=== PATIENT | female | born 1975 | race African-American/Black ===

== ENCOUNTER 2019-04-12 14:03 | Emergency (ER) | payer MEDICAID ==
[~2019-04-12] VITALS: Ht 162.6 cm; Wt 54.4 kg
[2019-04-12 14:03] VITALS: BP 112/73
--- NOTE | 2019-04-12 14:10 | NUR ---
ED Nurse Note: patient was broguht into ED from the street due to bizarre behavior. patient is alert awake, able to follow directions, but pt is talking to herself at this time.
--- NOTE | 2019-04-12 14:39 | NUR ---
Jose kaur in EDM - 04/12/19 at 1441 by MAYELAO ED Nurse Note: Sabina VILLAGRAN is notified that patient is unable to provide urine sample and "wishes to be treated for the other symptoms."
--- NOTE | 2019-04-12 15:59 | NUR ---
ED Nurse Note: patient tried to provide urine sample but unable to. patient drinking water.
--- NOTE | 2019-04-12 16:16 | Emergency Room Report ---
History of Present Illness General Chief Complaint: General Complaint Source: Patient Present Illness HPI 43-year-old female with no known significant past medical history appears to be having underlying psychiatric disorder brought in by paramedics due to bizarre behavior. Patient denies any suicidal homicidal ideation. Denies any pain at this time. Denies any drug use. Is loud and aggressive however sits in the room when told to do so. In no apparent distress and vital signs are within normal limits. Allergies: Coded Allergies: No Known Allergies (Unverified , 04/12/19) Patient History Past Medical History: see triage record Past Surgical History: none Pertinent Family History: none Now: No Immunizations: UTD Reviewed Nursing Documentation: PMH: Agreed; PSxH: Agreed Nursing Documentation-PMH Past Medical History: No Stated History Review of Systems All Other Systems: negative except mentioned in HPI Physical Exam Vital Signs Date Time Temp Pulse Resp B/P (MAP) Pulse Ox O2 Delivery O2 Flow Rate FiO2 04/12/19 14:02 98.1 110 18 112/73 (86) 97 Room Air Sp02 EP Interpretation: reviewed, normal General Appearance: no apparent distress, alert, GCS 15, non-toxic Head: normocephalic, atraumatic Eyes: bilateral eye normal inspection, bilateral eye PERRL ENT: hearing grossly normal, normal pharynx, no angioedema, normal voice Neck: full range of motion, supple/symm/no masses Respiratory: chest non-tender, lungs clear, normal breath sounds, speaking full sentences Cardiovascular #1: regular rate, rhythm, no edema, no murmur Gastrointestinal: non tender, soft, no mass Rectal: deferred Genitourinary: no CVA tenderness Musculoskeletal: back normal, digits/nails normal Neurologic: alert, motor strength/tone normal, oriented x3, sensory intact, responsive, speech normal Psychiatric: no suicidal/homicidal ideation, other - Aggressive behavior Skin: no rash Lymphatic: no adenopathy Medical Decision Making PA Attestation All my diagnosis and treatment plans were reviewed ad discussed with my supervising physician Dr. Mcclain Diagnostic Impression: Primary Impression: Bizarre behavior ER Course 43-year-old female with no known significant past medical history appears to be having underlying psychiatric disorder brought in by paramedics due to bizarre behavior. Patient denies any suicidal homicidal ideation. Denies any pain at this time. Denies any drug use. Is loud and aggressive however sits in the room when told to do so. In no apparent distress and vital signs are within normal limits. Ddx considered but are not limited to: generalized anxiety disorder, panic attack, depression with psychotic features, bipolar disorder, drug overdose Vital signs: are WNL, pt. is afebrile H&PE are most consistent with: Bizarre behavior ORDERS: UA, urine test, tox screen ED INTERVENTIONS: None required at this time. DISCHARGE: At this time pt. is stable for d/c to home. Will provide printed patient care instructions, and any necessary prescriptions. Care plan and follow up instructions have been discussed with the patient prior to discharge. Patient is psychiatric evaluation as outpatient. Denies any suicidal homicidal ideation. Last Vital Signs Date Time Temp Pulse Resp B/P (MAP) Pulse Ox O2 Delivery O2 Flow Rate FiO2 04/12/19 14:42 110 18 Room Air 04/12/19 14:03 98.1 112/73 97 Disposition: HOME, SELF-CARE Condition: Stable Sabina Hoffmann Apr 12, 2019 16:16
--- NOTE | 2019-04-12 16:41 | NUR ---
ED Nurse Note: UA SENT TO LAB
[2019-04-12 16:59] LABS: APPEARANCE,URINE CLEAR; BILIRUBIN, URINE NEGATIVE (NEGATIVE); GLUCOSE, URINE (UA) NEGATIVE (NEGATIVE); KETONES,URINE NEGATIVE (NEGATIVE); LEUKOCYTE ESTERASE ,URINE NEGATIVE (NEGATIVE); NITRITE,URINE NEGATIVE (NEGATIVE); PH,URINE 7 (4.5-8.0); PROTEIN,URINE NEGATIVE (NEGATIVE); UROBILINOGEN,URINE 1 MG/DL (0.0-1.0)
[2019-04-12 17:00] VITALS: BP 121/72
[2019-04-12 17:02] LABS: COLOR,URINE YELLOW
--- NOTE | 2019-04-12 17:27 | NUR ---
Homeless Discharge: Patient is being discharged from medical care by KOBE VILLAGRAN. Awake, alert and oriented x3. After care instructions, including referral to community resources were given. Patient verbalized understanding of After care instructions; at this time patient does not request medications, equipment or placement. Patient signed patient consent in the medical record for patient destination upon discharge. All medical devices such as ID band were removed. Patient ambulated out with all personal belongings with steady gait. patient provided with 2 sandwiches, water, and juices. paitent provided with warm jacket, other clothes were appropriate with the weather. patient declined to state where she is heading to.
[2019-04-12 17:29] VITALS: BP 121/72
== END 2019-04-12 17:26 | disposition home or self-care (01) ==
LOC: EDBD 14:03 → EMR 17:26
DX: R46.89 Other symptoms and signs involving appearance and behavior (principal)
CPT/HCPCS: 80307; 81003; 81025; Z7502; 99283